=== PATIENT | male | born 1995 | race African-American/Black ===

== ENCOUNTER 2016-11-07 12:00 | Inpatient (IN) | payer SELFPAY ==
--- NOTE | ~2016-11-07 | DS ---
Unit #: [id number] #: [id number] Patient: ALLEN ROD [id number] [facility] [address] [place] [address] [id number] I MR#: [id number] NAME: ALLEN ROD ROOM: [facility] Age: 21 Sex: M Admission Date: 11/07/2016 : 1995 Discharge Date: 11/09/2016 Attending Physician: Cayetano Carnes M.D. Primary Care Physician: Primary Care Physician No DISCHARGE SUMMARY REASON FOR ADMISSION Suicidal ideation, detox. DIAGNOSTIC STUDIES LABORATORY RESULTS: Unremarkable. HOSPITAL COURSE The patient was admitted to inpatient unit on 11/07/2016 and discharged on 11/09/2016. The patient was treated on the inpatient unit with group therapy, individual therapy, medication management. The patient was also started on detox protocol. The patient responded well with the above modalities of treatment, able to contract for safety. Subsequently, the patient was discharged with a plan to follow up in outpatient program. DISCHARGE MEDICATIONS None. DISCHARGE DIAGNOSES Psychiatric: 1. Major depressive disorder, recurrent, severe, F33.2. 2. Anxiety disorder, not otherwise specified. 3. Alcohol use disorder, severe, F10.20. 4. Cannabis abuse disorder, moderate, F12.20. 5. Cocaine use disorder, severe, F14.20. Secondary diagnosis: Deferred. Medical diagnosis: None. Stressors: Psychosocial stressors. DISCHARGE INSTRUCTIONS The patient to follow up in outpatient clinic as per social worker psychiatric. CONDITION ON DISCHARGE The patient was pleasant and cooperative. Denied any psychotic symptom or any suicidal ideation. PROGNOSIS Guarded. DIET AND ACTIVITY As tolerated. Unit #: [id number] #: [id number] Patient: ALLEN ROD Dictated by... Teagan Alvarado/jono TD: 11/10/2016 02:05 JOB #: [id number] DISCHARGE SUMMARY Page 1 of 1 X Cayetano Carnes MD X DISCHARGE SUMMARY
--- NOTE | ~2016-11-07 | HP ---
Unit #: [id number] #: [id number] Patient: EDWIN ROD [id number] [facility] [address] [place] [address] [id number] MR#: [id number] NAME: EDWIN ROD ROOM: P201 Age: 21 Sex: M Admission Date: 11/07/2016 : 1995 Attending Physician: Cayetano Carnes M.D. Admitting Physician: Cayetano Carnes M.D. Primary Care Physician: Primary Care Physician No HISTORY AND PHYSICAL HISTORY OF PRESENT ILLNESS Edwin is a 21 year old admitted to [address] [place] [address] because of his polysubstance abuse which includes alcohol, cocaine, IV heroin and amphetamines. PAST MEDICAL HISTORY Long history of illicit substance abuse to include IV drugs. PAST SURGICAL HISTORY Nothing reported. ALLERGIES Shell fish SOCIAL HISTORY Smokes one pack per day. Drinks alcohol frequently to excess. Admits to a history of illicit substance abuse to include IV drugs. FAMILY HISTORY Medically noncontributory. REVIEW OF SYSTEMS CONSTITUTIONAL: No fever or chills. HEENT: Denies any sore throat, ear pain or runny nose. CARDIOVASCULAR: Denies chest pain, irregular heart rhythm or palpitations. CHEST: Denies shortness of breath or cough. No hemoptysis. GASTROINTESTINAL: Denies nausea, vomiting, diarrhea or chronic constipation. ENDOCRINE: Denies history of increased thirst or urination. No recent significant weight loss or gain. GENITOURINARY: Denies dysuria, frequency, or hematuria. SKIN: Denies any rashes. HEMATOLOGIC: Denies history of increased bleeding or bruising. MUSCULOSKELETAL: Denies any hot, swollen joints. No generalized muscle pain. NEUROLOGIC: Denies problems with vision or speech. No frequent, severe headaches. No numbness, tingling or weakness in any extremities. Denies loss of bladder or bowel control. CURRENT MEDICATIONS Detox protocol PHYSICAL EXAMINATION Unit #: [id number] #: [id number] Patient: EDWIN ROD GENERAL: Alert, well-nourished, in no apparent distress. VITAL SIGNS: Blood pressure 110/65, heart rate 70, respirations 16, temperature 98.6. WEIGHT: 185 pounds. HEIGHT: 5'11". SKIN: Warm and dry without rash or lesion. HEENT: Normocephalic. TMs not viewed. Oral and nasal passages clear. Conjunctivae clear. Pupils equal, round and reactive to light and accommodation. Extraocular movements intact. NECK: Supple without lymphadenopathy or thyromegaly. HEART: Regular rate and rhythm without murmur. LUNGS: Clear. ABDOMEN: Soft, nontender. : Not done. EXTREMITIES: No evidence of cyanosis, clubbing or edema. Moves all extremities without focal deficit. NEUROLOGICAL: Grossly within normal limits. Cranial Nerves: II: Visual loyd are intact. III, IV AND : Extraocular movements are intact. Pupils are equal, round and reactive to light. V: Facial sensation is grossly normal. VII: Facial movements and expression are normal. VIII: Auditory acuity grossly intact. IX, X: Uvula is midline. Phonation is normal. XI: Patient shrugs shoulders and turns head normally. XII: Tongue protrudes in the midline. Sensory and Motor Function: Sensory and motor sensation is grossly normal. Motor: moves all extremities well. Coordination: Gait is normal. Deep Tendon Reflexes: Intact. IMPRESSION Psychiatric admission RECOMMENDATIONS PSYCHIATRIC: Per psychiatrist. MEDICAL: I see no contraindications to participating in facility's activities. MEDICAL PROGNOSIS Good. MEDICAL CONDITION Stable. Dictated by... Abby Bryson P.A.-C. for Teagan Bean/sara TD: 11/08/2016 23:26 JOB #: [id number] Unit #: [id number] #: [id number] Patient: EDWIN ROD HISTORY AND PHYSICAL Page 1 of 1 X Abby Bryson HISTORY AND PHYSICAL
--- NOTE | ~2016-11-07 | PA ---
Unit #: [id number] #: [id number] Patient: ALLEN ROD [id number] [facility] [address] [place] [address] [id number] I MR#: [id number] NAME: ALLEN ROD ROOM: P201 Age: 21 Sex: M Admission Date: 11/07/2016 : 1995 Date of Assessment: 11/08/2016 Attending Physician: Cayetano Carnes M.D. Admitting Physician: Cayetano Carnes M.D. Primary Care Physician: Primary Care Physician No PSYCHIATRIC ASSESSMENT INFORMANTS The patient reliability, fair informant and chart reliability, good. CHIEF COMPLAINT Suicidal ideation and detox. HISTORY OF PRESENT ILLNESS Mr. Pineda is a 21-year-old male, presented with the above-mentioned complaint. The patient is on a 72-hour hold. The patient was admitted with suicidal ideation with a plan to hang himself or overdose on heroin. The patient reported that he wanted to because of argument with the girlfriend. The patient making statements about harming himself. The patient has a history of suicide attempt by hanging and one overdose by heroin. The patient also reported using marijuana and alcohol. The patient denied any psychotic symptom. The patient reports started using drugs at age 12. Needing inpatient admission at this time for psychiatric stabilization. PAST PSYCHIATRIC HISTORY Remarkable for history of previous suicide attempt. No known history of any treatment. FAMILY HISTORY AND SOCIAL HISTORY The patient currently homeless. No history of abuse. MEDICAL HISTORY Unremarkable for any chronic medical illness. Musculoskeletal; muscle strength and tone, no atrophy or abnormal movement. Gait normal. MEDICATION HISTORY None. ALLERGIES No known drug allergies. SUBSTANCE ABUSE HISTORY The patient reported tobacco use, age of onset 14; alcohol, age of onset 13; marijuana, age of onset 12; crack cocaine, age of onset 13; LSD, age of onset 15; opioid, age of onset 21; and amphetamine, age of onset 21. REVIEW OF SYSTEMS HEENT: Eyes, clear. Ears, nose, mouth, and throat; clear. CARDIOVASCULAR: Unremarkable. Unit #: [id number] #: [id number] Patient: ALLEN ROD RESPIRATORY: Unremarkable. GI: Unremarkable. : Unremarkable. SKIN: Unremarkable. LYMPH NODE: Unremarkable. NEUROLOGIC: Unremarkable. ENDOCRINE: Unremarkable. HEMATOLOGIC: Unremarkable. ALLERGIC/IMMUNOLOGIC: Unremarkable. MUSCULOSKELETAL: Muscle strength and tone, no atrophy or abnormal movement. Gait normal. MENTAL STATUS EXAMINATION CONSTITUTIONAL: Measurement of vital signs; temperature 98.5, heart rate 69, respiratory rate 16, and blood pressure 109/65. Height 5 feet 11 inches and weight 185 pounds. GENERAL APPEARANCE: The patient dressed casually. No facial deformity noted. MUSCULOSKELETAL: Please see above. PSYCHIATRIC EXAMINATION Description of speech; regular rate, normal volume, and normal articulation. Description of thought process, goal directed. Description of association, intact. Description of abnormal psychotic thinking; the patient denied any hallucination or delusions, but suicidal ideation as mentioned above. Description of the patient's judgment: Concerning everyday activity, poor. Social situation, poor. Concerning psychiatric condition, poor. Complete mental status examination; oriented in time, place, and person. Recent and remote memory, fair. Attention span and concentration, fair. Language, intact. Fund of knowledge, fair. Vocabulary, intact. Mood and affect, sad and dysphoric. Insight and judgment, fair to poor. ASSETS AND LIABILITIES Assets, the patient is articulate and able to take care of his ADL. Liability; history of depression, suicidal ideation, and substance abuse. ADMITTING DIAGNOSES Psychiatric: Major depressive disorder, recurrent, severe, F33.2; anxiety disorder, not otherwise specified; alcohol use disorder, severe, F10.20; cannabis abuse, moderate, F12.20; and cocaine use disorder, severe, F14.20. Secondary diagnosis: Deferred. Medical diagnosis: None. Stressors: Psychosocial stressors. PSYCHIATRIC PLAN AND TREATMENT GOAL AND DISCHARGE PLAN 1. Advised to admit the patient on the inpatient unit. Provide safe, supportive, and structured environment. 2. Ordered labs; CBC, CMP, UA, and UDS. 3. Precaution for self-harm, detox protocol, and detox monitoring. 4. The patient to attend all the programing on the inpatient unit. If needed, consider SSRI. TREATMENT GOAL To attain euthymic mood, gain insight into his problem, and learn coping Unit #: [id number] #: [id number] Patient: MARCELALLEN smith. DISCHARGE PLAN Plan to stabilize the patient and consider followup in outpatient program. ESTIMATED LENGTH OF STAY 3 to 5 days. Dictated by... Cayetano Carnes M.D. LANA/jono TD: 11/08/2016 20:55 JOB #: [id number] PSYCHIATRIC ASSESSMENT Page 1 of 1 X Cayetano Carnes MD PSYCHIATRIC ASSESSMENT
[2016-11-08 09:33] LABS: BASOPHIL% 0.5 % (0-2.5); EOSINOPHIL# 0.2 X10e3 (0-0.7); EOSINOPHIL% 3.6 % (0.0-7.0); HEMOGLOBIN 14.5 gm/dL (13.0-16.0); LYMPHOCYTE# 2.4 X10e3 (1.0-3.5); LYMPHOCYTE% 37.9 % (17.0-45.0); MEAN CELL VOLUME 85.4 FL (83-96); MEAN CORPUSCULAR HGB CONC 31.6 g/dL (30-36); MEAN PLATELET VOLUME 7.7 FL (6.5-11.5); MONOCYTE# 0.7 X10e3 (0-1.0); MONOCYTE% 10.5 % (3.0-12.0); NEUTROPHIL% 47.5 % (40-75); PLATELET COUNT 200 X10e3 (140-420); RED BLOOD COUNT 5.38 X10e (3.90-5.60); RED CELL DISTRIBUTION WIDTH 15.3 % (11.0-15.5); WHITE BLOOD COUNT 6.4 X10e3 (4.0-10.5)
[2016-11-08 09:46] LABS: DIFF IND NO
[2016-11-08 09:47] LABS: ALBUMIN SERUM 3.6 g/dL (3.5-5.0); BILIRUBIN,TOTAL 1.1 mg/dL (0.2-2.0); CALCIUM SERUM 8.9 mg/dL (8.4-10.2); GLOM FILT RATE Estimated 123.3 mL/min (>60); POTASSIUM 3.7 mmol/L (3.5-5.1); PROTEIN TOTAL SERUM 6.4 g/dL (6.0-8.3)
== END 2016-11-09 10:10 | disposition home or self-care (01) | DRG 885 ==
LOC: P2S 13:40
PROVIDERS: Psychiatry & Neurology Psychiatry
PROC: HZ2ZZZZ Detoxification Services for Substance Abuse Treatment (ICD-10-PCS; principal; 2016-11-07)
DX: F33.2 Major depressive disorder, recurrent severe without psychotic features (principal); F14.20 Cocaine dependence, uncomplicated; F41.9 Anxiety disorder, unspecified; Z91.013 Allergy to seafood; F17.210 Nicotine dependence, cigarettes, uncomplicated; F10.20 Alcohol dependence, uncomplicated; F12.20 Cannabis dependence, uncomplicated
CPT/HCPCS: 80053; 85025; J0515; J1630; J2060